=== PATIENT | female | born 1970 | race African-American/Black ===

== ENCOUNTER 2016-03-24 17:34 | Emergency (ER) | payer OTHER ==
[2016-03-24 19:00] VITALS: BP 119/79
--- NOTE | 2016-03-24 19:45 | UC ---
Throat Pain/Nasal Rolando HPI - HPI Summary HPI Summary: complaint of nasal congestion and cough that started approx 7 days ago coughing so hard she vomited 1 x yesterday her left ear has been painful denies fever and chills denies muscle aches taking [place], using albuterol inhaler without reliel and tessalon perles - History of Current Complaint Chief Complaint: UCEar Stated Complaint: EAR PAIN,DRAINAGE Time Seen by Provider: 03/24/16 19:41 Hx Last Menstrual Period: 03/23/16 - Allergies/Home Medications Allergies/Adverse Reactions: Allergies Allergy/AdvReac Type Severity Reaction Status Date / Time Adhesive Tape [Plastic Tape] Allergy Rash Verified 03/24/16 19:00 Penicillins [PCN] Allergy Swelling Verified 03/24/16 19:00 Of Face,Lips,& Throat Home Medications: Home Medications Benzonatate CAP* [Tessalon CAP*] 200 mg PO PRN 03/24/16 [History] PMH/Surg Hx/FS Hx/Imm Hx Endocrine History Of: Denies: Diabetes, Thyroid Disease Cardiovascular History Of: Denies: Cardiac Disorders, Hypertension, Pacemaker/ICD, Myocardial Infarction , Congestive Heart Failure, Atrial Fibrillation, Deep Vein Thrombosis, Bleeding Disorders Respiratory History Of: Reports: Asthma - She uses an inhaler every day., Bronchitis Denies: COPD, Pneumonia, Pulmonary Embolism GI/ History Of: Reports: Gastroesophageal Reflux - She states that she takes Prilosec and Carafate. Denies: Ulcer, Gastrointestinal Bleed, Gall Bladder Disease, Kidney Stones, Diverticulitis, Renal Disease, Urosepsis Neurological History Of: Denies: TIA, CVA, Dementia, Seizures, Migraine Psychological History Of: Denies: Anxiety, Depression, Bipolar Disorder, Schizophrenia, Post Traumatic Stress Disorder Cancer History Of: Denies: Lung Cancer, Colorectal Cancer, Breast Cancer, Prostate Cancer, Cervical Cancer Other History Of: Negative For: HIV, Hepatitis B, Hepatitis C, Anticoagulant Therapy - Surgical History Surgical History: Yes Surgery Procedure, Year, and Place: KNUCKLES REMOVED FROM BILAT 5TH TOES - Family History Known Family History: Positive: Hypertension, Diabetes - both parents and all her siblings, Respiratory Disease - Social History Alcohol Use: Occasionally Alcohol Amount: 2X/MONTH Substance Use Type: None Smoking Status (MU): Current Every Day Smoker Type: Cigarettes Amount Used/How Often: 1/3 PPD Length of Time of Smoking/Using Tobacco: 18+ years Have You Smoked in the Last Year: Yes - Immunization History Most Recent Tetanus Shot: 05/20/12 Review of Systems Constitutional: Negative Skin: Negative Eyes: Negative ENT: Ear Ache, Nasal Discharge Respiratory: Cough Cardiovascular: Negative Gastrointestinal: Negative Genitourinary: Negative Motor: Negative Neurovascular: Negative Musculoskeletal: Negative Neurological: Negative Psychological: Negative All Other Systems Reviewed And Are Negative: Yes Physical Exam Triage Information Reviewed: Yes Appearance: No Pain Distress, Well-Nourished Vital Signs: Initial Vital Signs Temp 98 F 03/24/16 18:57 Pulse 95 03/24/16 18:57 Resp 16 03/24/16 18:57 BP 119/79 03/24/16 18:57 Pulse Ox 98 03/24/16 18:57 Vital Signs Reviewed: Yes Eyes: Positive: Conjunctiva Clear ENT: Positive: Pharyngeal erythema, Nasal congestion, Nasal drainage, TM bulging , TM red, Tonsillar swelling Neck: Positive: No Lymphadenopathy Respiratory: Positive: No respiratory distress, No accessory muscle use, Rhonchi - BLL, Wheezing Cardiovascular: Positive: RRR, No Murmur, Pulses Normal Abdomen Description: Positive: Nontender, Soft Bowel Sounds: Positive: Present Musculoskeletal: Positive: No Edema Psychological Exam: Normal Skin Exam: Normal Throat Pain/Nasal Course/Dx - Course Course Of Treatment: exam completed. recent use of zpack will rx clarithromycin - Differential Dx/Diagnosis Differential Diagnosis/HQI/PQRI: Otitis Media, Pharyngitis, URI Provider Diagnoses: asthma exacerbation, otitis media Discharge - Discharge Plan Condition: Stable Disposition: HOME Prescriptions: Albuterol HFA INHALER* [Ventolin HFA Inhaler*] 2 puff INH Q4H PRN #1 mdi PRN Reason: Wheezing Clarithromycin TAB* [Biaxin TAB*] 500 mg PO BID #20 tab guaiFENesin ER TAB [Mucinex*] 600 mg PO BID #20 tab.er predniSONE TAB* [Deltasone TAB*] 50 mg PO DAILY #5 tab Patient Education Materials: Otitis Media (ED), Asthma (ED) Referrals: Vicente Mcnair MD [Primary Care Provider] - Additional Instructions: Please take antibiotic and prednisone as directed Use your albuterol inhaler every 4-6 hours when needed for wheezing, shortness of breath or uncontrolled coughing. Increase fluids and rest Take acetaminophen or ibuprofen for fever or pain Please review your discharge instructions. If your symptoms do not improve please call your primary care provider or return to urgent care.
== END 2016-03-24 20:05 | disposition home or self-care (01) ==
LOC: UCEAST 17:34
DX: J45.901 Unspecified asthma with (acute) exacerbation (principal); H66.92 Otitis media, unspecified, left ear; Z88.0 Allergy status to penicillin; F17.210 Nicotine dependence, cigarettes, uncomplicated
CPT/HCPCS: 99212; G0463

== ENCOUNTER 2016-04-09 07:21 | Emergency (ER) | payer OTHER ==
[2016-04-09 07:38] VITALS: BP 99/59
[2016-04-09] MEDS ORDERED: Albuterol 2.5 MG/3 ML NEB.SOL* (0.083%) INH ONE (08:13)
[2016-04-09] MEDS ORDERED: Ipratropium 0.5MG/2.5ML NEB* 0.5 MG/2.5 ML NEB.SOLN INH ONE (08:13)
--- NOTE | 2016-04-09 08:34 | RAD ---
INDICATION: Cough and fever COMPARISON: April 28, 2014; chest x-ray November 25, 2011 TECHNIQUE: PA and lateral dual-energy views were obtained. FINDINGS: Bones/Soft Tissues: There are no acute bony findings. Cardiomediastinal: The cardiomediastinal silhouette is normal. Lungs: There are no infiltrates. Pleura: There are no pleural effusions. Other: None IMPRESSION: NO ACTIVE DISEASE.
--- NOTE | 2016-04-09 10:49 | UC ---
Tyler Hancock Claudia, scribed for Shannen Kovacs DO on 04/09/16 at 0813 . General HPI - HPI Summary HPI Summary: 46 year old female presents to the ED with subjective fever, chills, body aches , intermittent vomiting, LOCO, cough. Pt denies any sinus pressure, ear ache or sore throat. Pt notes that she has had gradual onset of Sx starting Sunday. She denies any urinary Sx including dysuria,, diarrhea, and rashes. Pt notes that everyone at her work is sick, some diagnosed with influenza. She notes progressive worsening of her Sx over the past few days. - History of Current Complaint Chief Complaint: UCGeneralIllness Stated Complaint: URI Time Seen by Provider: 04/09/16 07:32 Hx Obtained From: Patient Onset/Duration: Gradual Onset, Lasting Days, Still Present Timing: Constant Onset Severity: Moderate Current Severity: Moderate Associated Signs & Symptoms: Positive: Cough, Chest Pain - pleuritic, Fever, Headache, Nausea, Vomiting, Wheezing. Negative: Dizziness, Diarrhea, Dysuria - Allergy/Home Medications Allergies/Adverse Reactions: Allergies Allergy/AdvReac Type Severity Reaction Status Date / Time Adhesive Tape [Plastic Tape] Allergy Rash Verified 03/24/16 19:00 Coconut Flavor Allergy Swelling Verified 04/09/16 07:27 Of Face,Lips,& Throat Penicillins [PCN] Allergy Swelling Verified 03/24/16 19:00 Of Face,Lips,& Throat Home Medications: Home Medications Dextromethorphan-Phenylephrine [Vicks Dayquil Cold & Flu 10-5-325 mg] 2 tab PO PRN 04/09/16 [History] PMH/Surg Hx/FS Hx/Imm Hx Previously Healthy: Yes Endocrine History Of: Denies: Diabetes, Thyroid Disease Cardiovascular History Of: Denies: Cardiac Disorders, Hypertension, Pacemaker/ICD, Myocardial Infarction , Congestive Heart Failure, Atrial Fibrillation, Deep Vein Thrombosis, Bleeding Disorders Respiratory History Of: Reports: Asthma - She uses an inhaler every day., Bronchitis Denies: COPD, Pneumonia, Pulmonary Embolism GI/ History Of: Reports: Gastroesophageal Reflux - She states that she takes Prilosec and Carafate. Denies: Ulcer, Gastrointestinal Bleed, Gall Bladder Disease, Kidney Stones, Diverticulitis, Renal Disease, Urosepsis Neurological History Of: Denies: TIA, CVA, Dementia, Seizures, Migraine Psychological History Of: Denies: Anxiety, Depression, Bipolar Disorder, Schizophrenia, Post Traumatic Stress Disorder Cancer History Of: Denies: Lung Cancer, Colorectal Cancer, Breast Cancer, Prostate Cancer, Cervical Cancer Other History Of: Negative For: HIV, Hepatitis B, Hepatitis C, Anticoagulant Therapy - Surgical History Surgical History: Yes Surgery Procedure, Year, and Place: KNUCKLES REMOVED FROM BILAT 5TH TOES - Family History Known Family History: Positive: Hypertension, Diabetes - both parents and all her siblings, Respiratory Disease - Social History Occupation: Employed Full-time Lives: With Family Alcohol Use: Occasionally Alcohol Amount: 2X/MONTH Substance Use Type: None Smoking Status (MU): Current Every Day Smoker Type: Cigarettes Amount Used/How Often: 5 cig/day Length of Time of Smoking/Using Tobacco: 18+ years Have You Smoked in the Last Year: Yes Cessation Counseling: Patient Advised to Stop - Immunization History Most Recent Influenza Vaccination: Not UTD Most Recent Tetanus Shot: 05/20/12 Review of Systems Constitutional: Other - FEVER, CHILLS Skin: Negative Eyes: Negative ENT: Negative Respiratory: Cough Cardiovascular: Negative Gastrointestinal: Negative Genitourinary: Negative - NO URINARY Sx Motor: Negative Neurovascular: Negative Musculoskeletal: Negative Neurological: Negative Psychological: Negative All Other Systems Reviewed And Are Negative: Yes Physical Exam Triage Information Reviewed: Yes Appearance: Well-Appearing, No Pain Distress, Well-Nourished Vital Signs: Initial Vital Signs Temp 98.4 F 04/09/16 07:32 Pulse 103 04/09/16 07:32 Resp 20 04/09/16 07:32 BP 99/59 04/09/16 07:32 Pulse Ox 97 04/09/16 07:32 Vital Signs Reviewed: Yes Eye Exam: Normal Eyes: Positive: Conjunctiva Clear. Negative: Discharge ENT Exam: Normal ENT: Positive: Hearing grossly normal, TMs normal. Negative: Tonsillar swelling , Tonsillar exudate, Trismus, Muffled/hoarse voice Neck exam: Normal Neck: Positive: Supple Respiratory: Positive: No respiratory distress, No accessory muscle use, Wheezing - diffuse wheezing in all noe Cardiovascular: Positive: RRR, No Murmur Abdomen Description: Positive: Nontender, Soft. Negative: CVA Tenderness (R), CVA Tenderness (L), Distended, Guarding Bowel Sounds: Positive: Present Musculoskeletal Exam: Normal Neurological: Positive: Alert, Muscle Tone Normal Psychological Exam: Normal Psychological: Positive: Age Appropriate Behavior Skin Exam: Normal, Other - warm, dry nml color Diagnostics - Radiology CXR Xray Interpretation: No Acute Changes - NO ACTIVE DISEASE Radiology Interpretation Completed By: Radiologist Re-Evaluation - Re-Evaluation 1 Re-Evaluation Time: 09:24 Change: Improved - pt is somewhat improved after an albulterol treatment 2 Re-Evaluation Time: 09:54 Comment: Results of a positive inflenza rapid test are discussed with pt. Course/Dx - Differential Dx - Multi-Symptom Differential Diagnoses: Other - pna, bronchitis, flu, uri Provider Diagnoses: influenza, bronchitis Discharge - Discharge Plan Condition: Stable Disposition: HOME Prescriptions: Albuterol 2.5MG/3ML (0.083%)* [Ventolin 2.5 MG/3 ML NEB.SEYMOUR*] 2.5 mg INH Q4H PRN #1 box PRN Reason: Sob/Wheezing Benzonatate CAP* [Tessalon CAP*] 100 mg PO TID PRN #30 cap PRN Reason: Cough Oseltamivir Phosphate [Tamiflu] 75 mg PO BID #10 cap guaiFENesin ER TAB [Mucinex*] 600 mg PO BID PRN #1 box PRN Reason: Cough guaiFENesin/CODIEN 100MG-10MG* [Robitussin AC 100Mg-10Mg*] 5 - 10 ml PO BEDTIME PRN #100 udc MDD 10ml PRN Reason: Cough predniSONE TAB* [Deltasone TAB*] 40 mg PO DAILY #10 tab Patient Education Materials: Influenza (ED), Acute Bronchitis (ED), Oseltamivir (By mouth) Referrals: Vicente Mcnair MD [Primary Care Provider] - 3 Days (Follow up in 5 days if not improving. Follow up sooner is symptoms worsen.) Additional Instructions: CORTICOSTEROID MEDICATION: You have been given a medicine of the cortisone class. This medication is used to control inflammation or allergy. It is usually only given for a short period of time, until the acute process subsides. There are usually no side effects from short-term use of cortisone-like medications. Some persons feel an increased sense of well-being and are not sleepy at bedtime. Long-term use of cortisone medications is best avoided, unless required for a severe condition. If your condition does not remit, or relapses after the course of corticosteroid medication, you should consult your physician. Contact the physician if you develop lightheadedness, black or tarry stools , swelling of the legs, or significant rapid change in weight. INHALED BRONCHODILATORS: You have received a prescription for an inhaled bronchodilator -- a medication which stimulates the airways in the lung to dilate. This improves the flow of air in asthma, bronchitis, and emphysema. These medicines have some similarity to adrenaline, and can cause similar side effects: shakiness, racing heart, and a sense of nervousness. These side effects decrease with time. Contact your doctor if these side effects are severe. Do not over-use the medicine. Too-frequent use of the inhaler may make it ineffective. Call your doctor if the inhaler is not controlling your symptoms at the prescribed doses. COUGH-SUPPRESSANT & EXPECTORANT MEDICATION: You are to use a cough medication as needed for relief of symptoms. This medicine is a combination of an expectorant (to make the mucous thinner and more easily "coughed up") and a cough suppressant (to reduce the frequency of coughing). The cough-suppressant medicine is related to narcotics. You may experience mild nausea and sleepiness. Some patients who are very sensitive to narcotics may have stomach pain from this medicine. Taking the medicine with food reduces these side effects. Do not drive or work with machinery until you know how this medicine affects you. The expectorant should have no side effects. Iodine-containing expectorants (such as organidin) should not be taken by persons with active thyroid disease unless approved by your doctor. Call the doctor if you develop shortness of breath, hives, rash, itching, lightheadedness, or severe nausea and vomiting. EXPECTORANT MEDICATION: An expectorant medicine has been prescribed. This type of drug makes mucous thinner, helping the sinuses, nose, and bronchial tubes to remain free of pus and mucous. Expectorants make a cough less severe and more comfortable, and help infected sinuses drain. In general, antihistamines defeat the purpose of the expectorant by making mucous thicker. They should be avoided unless specifically recommended by your physician. TESSALON PERLES: You have received a prescription for Tessalon Perles (benzonatate). This is a non-narcotic medicine for relief of cough. It usually works in about 15- 20 minutes and lasts around four hours. Tessalon Perles should be swallowed. They should not be chewed or dissolved in the mouth (this can produce temporary numbing of the mouth and choking can occur). If you develop any adverse effects such as wheezing, shortness of breath, hives, rash, itching, or lightheadedness, please return at once. The documentation as recorded by the Tyler juarez Claudia accurately reflects the service I personally performed and the decisions made by me, Shannen Kovacs DO.
== END 2016-04-09 10:09 | disposition home or self-care (01) ==
LOC: UCEAST 07:21
DX: J11.1 Influenza due to unidentified influenza virus with other respiratory manifestations (principal); J40 Bronchitis, not specified as acute or chronic; F17.210 Nicotine dependence, cigarettes, uncomplicated; Z88.0 Allergy status to penicillin
CPT/HCPCS: 71020; 87502; 99212; G0463; J7644

== ENCOUNTER 2016-09-24 00:01 | Emergency (ER) | payer OTHER ==
[2016-09-24] MEDS ORDERED: Aspirin Low Dose CHEW TAB* 81 MG PO ONE (00:11)
[2016-09-24 00:31] LABS: Hematocrit 35 % (35-47); Hemoglobin 11.3 g/dl (12.0-16.0); Mean Corpuscular HGB Conc 32 g/dl (31-36); Mean Corpuscular Hemoglobin 26 pg (27-31); Mean Corpuscular Volume 81 fL (80-97); Mean Platelet Volume 10 um3 (7.4-10.4); Red Cell Distribution Width 17 % (10.5-15); White Blood Count 5.2 10^3/ul (3.5-10.8)
[2016-09-24 00:39] LABS: Albumin 3.7 g/dL (3.2-5.2); Calcium 9.1 mg/dL (8.6-10.3); EGFR Non-African American 106.5 (>60); Potassium 3.4 mmol/L (3.5-5.0); Total Bilirubin 0.2 mg/dL (0.2-1.0); Total Protein 6.7 g/dL (6.4-8.9)
[2016-09-24 00:41] LABS: Troponin I 0.01 ng/mL (<0.04)
--- NOTE | 2016-09-24 02:15 | ED ---
I, Forrest,Xiomara, scribed for Nelson Carlos MD on 09/24/16 at 0018 . HPI Chest Pain - HPI Summary HPI Summary: This 46 y/o female presents to ED for acute chest pain since 1999 PM tonight. Pt was at rest watching TV with her kids at time of onset. She initially dismissed pain as musculoskeletal, but became concerned with persistent pain in spite of pain medication. Pain has been sharp and constant since the onset, and is not alleviated by IBP taken PRODUCTION LEAD. Deep breaths make the pain worse. She denies any prior episode of similar chest pain. PMHx includes GERD and asthma. Allergies involving PCN is reviewed and confirmed with pt. - History of Current Complaint Chief Complaint: EDChestPainROMI Hx Obtained From: Patient, Medical Records Hx Last Menstrual Period: 03/26/16 Onset/Duration: Started Hours Ago, Atraumatic, Still Present Timing: Constant Pain Intensity: 5 Pain Scale Used: 0-10 Numeric Chest Pain Location: Diffuse Chest Pain Radiates: No Character: Sharp/Stabbing Aggravating Factor(s): Nothing Alleviating Factor(s): Nothing Associated Signs and Symptoms: Positive: Chest Pain. Negative: Shortness of Breath, Fever - Allergy/Home Medications Allergies/Adverse Reactions: Allergies Allergy/AdvReac Type Severity Reaction Status Date / Time Adhesive Tape [Plastic Tape] Allergy Rash Verified 09/24/16 00:06 Coconut Flavor Allergy Swelling Verified 09/24/16 00:06 Of Face,Lips,& Throat Penicillins [PCN] Allergy Swelling Verified 09/24/16 00:06 Of Face,Lips,& Throat PMH/Surg Hx/FS Hx/Imm Hx Endocrine/Hematology History: Denies: Hx Anticoagulant Therapy, Hx Blood Disorders, Hx Blood Transfusions, Hx Bone Marrow Disease, Hx Diabetes, Hx Systemic Lupus Erythematosus, Hx Thyroid Disease, Hx Anemia, Hx Unexplained Bleeding Cardiovascular History: Denies: Hx Congestive Heart Failure, Hx Deep Vein Thrombosis, Hx Hypertension , Hx Myocardial Infarction, Hx Pacemaker/ICD Respiratory History: Reports: Hx Asthma - She uses an inhaler every day., Hx Chronic Bronchitis Denies: Hx Chronic Obstructive Pulmonary Disease (COPD), Hx Cystic Fibrosis, Hx Lung Cancer, Hx Pleural Effusion, Hx Pneumonia, Hx Pulmonary Edema, Hx Pulmonary Embolism, Hx Seasonal Allergies GI History: Reports: Hx Gastroesophageal Reflux Disease - OCC Denies: Hx Gall Bladder Disease, Hx Gastrointestinal Bleed, Hx Ulcer, Hx Urosepsis History: Denies: Hx Kidney Stones, Hx Renal Disease Musculoskeletal History: Reports: Hx Rheumatoid Arthritis Sensory History: Reports: Hx Contacts or Glasses - GLASSES Opthamlomology History: Reports: Hx Contacts or Glasses - GLASSES Neurological History: Denies: Hx Dementia, Hx Migraine, Hx Seizures, Hx Transient Ischemic Attacks (TIA) Psychiatric History: 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 Denies: Hx Anxiety, Hx Depression, Hx Schizophrenia, Hx Bipolar Disorder - Surgical History Surgery Procedure, Year, and Place: KNUCKLES REMOVED FROM BILAT 5TH TOES Infectious Disease History: Yes Infectious Disease History: Reports: Hx of Known/Suspected MRSA - axilla abcess 2008 Denies: Hx Clostridium Difficile, Hx Hepatitis, Hx Human Immunodeficiency Virus (HIV), Hx Shingles, Hx Tuberculosis, Hx Known/Suspected VRE, Hx Known/ Suspected VRSA, History Other Infectious Disease, Traveled Outside the [place] in Last 30 Days - Family History Known Family History: Positive: Hypertension, Diabetes - both parents and all her siblings, Respiratory Disease - Social History Alcohol Use: Occasionally Alcohol Amount: 2X/MONTH Substance Use Type: Reports: None Smoking Status (MU): Current Every Day Smoker Type: Cigarettes Amount Used/How Often: 5 cig/day Length of Time of Smoking/Using Tobacco: 18+ years Have You Smoked in the Last Year: Yes Review of Systems Negative: Fever Positive: Chest Pain Negative: Shortness Of Breath All Other Systems Reviewed And Are Negative: Yes Physical Exam Triage Information Reviewed: Yes Vital Signs On Initial Exam: Initial Vitals Temp Pulse Resp BP Pulse Ox 97.6 F 89 16 109/45 99 09/24/16 00:08 09/24/16 00:08 09/24/16 00:08 09/24/16 00:08 09/24/16 00:08 Vital Signs Reviewed: Yes Appearance: Positive: Well-Appearing, No Pain Distress Skin: Positive: Warm Head/Face: Positive: Normal Head/Face Inspection Eyes: Positive: ARLETH ENT: Positive: Hearing grossly normal Neck: Positive: Supple, Nontender Respiratory/Lung Sounds: Positive: Clear to Auscultation, Breath Sounds Present Cardiovascular: Positive: RRR Abdomen Description: Positive: Nontender, Soft Bowel Sounds: Positive: Present Musculoskeletal: Positive: Strength/ROM Intact Neurological: Positive: Alert, Oriented to Person Place, Time, Normal Gait Psychiatric: Positive: Affect/Mood Appropriate Diagnostics - Vital Signs Vital Signs Temp Pulse Resp BP Pulse Ox 09/24/16 00:08 97.6 F 89 16 109/45 99 - Laboratory Result Diagrams: 09/24/16 00:08 09/24/16 00:08 Lab Statement: Any lab studies that have been ordered have been reviewed, and results considered in the medical decision making process. - Radiology CXR Radiology Interpretation Completed By: ED Physician - EKG 0005 Cardiac Rate: NL - 91 bpm EKG Rhythm: Sinus Rhythm ST Segment: Normal Re-Evaluation - Re-Evaluation First Eval Change: Improved - PT REMAINS PAIN FREE Chest Pain Course/Dx - Course Assessment/Plan: This 46 y/o female presents to ED for acute onset of chest pain since 2200 PM tonight. CXR and EKG is noted nml. Repeat trop at 0315 PM is unchaged from her initial trop at 0008 AM. Pt is stable throughout ED course. Pt is stable for discharge. - Diagnoses Provider Diagnoses: Chest pain Discharge - Discharge Plan Condition: Stable Disposition: HOME Patient Education Materials: Chest Pain (ED) Referrals: Vicente Mcnair MD [Primary Care Provider] - 2 Days The documentation as recorded by the Forrest juarez Soohyun accurately reflects the service I personally performed and the decisions made by , Nelson Carlos MD.
[2016-09-24 04:15] VITALS: BP 80/51
--- NOTE | 2016-09-24 09:11 | RAD ---
Indication: Chest pain. Single frontal view of the chest performed at 0024 hours was reviewed. Comparison is made with previous exam dated April 09, 2016. No mediastinal shift is noted. Heart is of normal size and configuration. Lung noe appear clear. IMPRESSION: NO ACTIVE CARDIOPULMONARY DISEASE IS NOTED.
== END 2016-09-24 04:15 | disposition home or self-care (01) ==
LOC: ED 00:01
DX: R07.9 Chest pain, unspecified (principal); I10 Essential (primary) hypertension; F17.210 Nicotine dependence, cigarettes, uncomplicated
CPT/HCPCS: 36415; 71010; 80053; 83605; 84484; 85025; 93005; 99283; A9270-GY

== ENCOUNTER 2016-10-17 19:20 | Emergency (ER) | payer OTHER ==
[2016-10-17 19:35] VITALS: BP 90/68
[2016-10-17] MEDS ORDERED: predniSONE TAB* 20 MG PO ONE (19:51)
[2016-10-17] MEDS ORDERED: Doxycycline (NF) 100 MG TAB PO ONE (19:51)
[2016-10-17] MEDS ORDERED: Albuterol 2.5 MG/3 ML NEB.SOL* (0.083%) INH ONE (19:52)
--- NOTE | 2016-10-17 20:07 | UC ---
Respiratory Complaint HPI - HPI Summary HPI Summary: Patient presents to the clinic with a past medical history of asthma. She presents with eight day onset progressively worsening cough, think white sputum , generalized fatigue and malaise And just cannot sleep due to the terrible coughing. She states she has not slept at all. She denies chest pain, abdominal pain, nausea, vomiting or diarrhea. She has been using her son albuterol nebulizer with some temporary relief. - History of Current Complaint Chief Complaint: UCRespiratory Stated Complaint: COUGH Time Seen by Provider: 10/17/16 19:44 Hx Obtained From: Patient Hx Last Menstrual Period: 10/06/16 ?: No Onset/Duration: Gradual Onset, Lasting Days Timing: Intermittent Episodes Severity Initially: Moderate Severity Currently: Moderate Character: Cough: Productive Aggravating Factors: Exertion, Deep Breaths, Recumbent Position Alleviating Factors: Bronchodilator, Upright Position, Spontaneous Resolution Associated Signs And Symptoms: Positive: Wheezing, URI, Nasal Congestion - Risk Factors Pulmonary Embolism Risk Factors: Negative Cardiac Risk Factors: Negative Pseudomonas Risk Factors: Negative Tuberculosis Risk Factors: Negative - Allergies/Home Medications Allergies/Adverse Reactions: Allergies Allergy/AdvReac Type Severity Reaction Status Date / Time Adhesive Tape [Plastic Tape] Allergy Rash Verified 10/17/16 19:35 Coconut Flavor Allergy Swelling Verified 10/17/16 19:35 Of Face,Lips,& Throat Penicillins [PCN] Allergy Swelling Verified 10/17/16 19:35 Of Face,Lips,& Throat Home Medications: Home Medications Mometasone/Formoter 100/5 MDI* [Dulera 100/5 MDI*] 2 puff INH BID 10/17/16 [ History Confirmed 10/17/16] PMH/Surg Hx/FS Hx/Imm Hx Previously Healthy: Yes Respiratory History: Asthma Other History Of: Negative For: HIV, Hepatitis B, Hepatitis C, Anticoagulant Therapy - Surgical History Surgical History: Yes Surgery Procedure, Year, and Place: KNUCKLES REMOVED FROM BILAT 5TH TOES - Family History Known Family History: Positive: Hypertension, Diabetes - both parents and all her siblings, Respiratory Disease - Social History Occupation: Employed Full-time Lives: Alone Alcohol Use: Occasionally Alcohol Amount: 2X/MONTH Substance Use Type: None Smoking Status (MU): Current Every Day Smoker Type: Cigarettes Amount Used/How Often: 5 cig/day Length of Time of Smoking/Using Tobacco: 18+ years Have You Smoked in the Last Year: Yes - Immunization History Most Recent Influenza Vaccination: Not UTD Most Recent Tetanus Shot: 05/20/12 Review of Systems Constitutional: Chills, Fatigue Skin: Negative Eyes: Negative Cardiovascular: Negative Gastrointestinal: Negative Genitourinary: Negative Motor: Negative Neurovascular: Negative Musculoskeletal: Negative Neurological: Negative All Other Systems Reviewed And Are Negative: Yes Physical Exam Triage Information Reviewed: Yes Appearance: Ill-Appearing Vital Signs: Initial Vital Signs Temp 98.2 F 10/17/16 19:31 Pulse 116 10/17/16 19:31 Resp 20 10/17/16 19:31 BP 90/68 10/17/16 19:31 Pulse Ox 99 10/17/16 19:31 Vital Signs Reviewed: Yes Eye Exam: Normal ENT: Positive: Pharyngeal erythema, TM red Neck exam: Normal Respiratory: Positive: Crackles, Rhonchi, Wheezing, Expiration, Inspiration Cardiovascular Exam: Normal Cardiovascular: Positive: RRR Abdominal Exam: Normal Skin Exam: Normal UC Diagnostic Evaluation - Laboratory O2 Sat by Pulse Oximetry: 99 Respiratory Course/Dx - Course Course Of Treatment: Patient presents with clincial findings consistent with exacerbation of asthma secondary to pheumonia. She was given a loading does of doxycycline 100mg, prednisone 40mg, albuertol neb treatment in the clinic. She was also given a 10 day course of doxycycline, 5 day course of prednison, and albuterol for the nebulizer at home, and tussin/codeine for cough suppressant. She was instructed to go to the er in 2 days if her symtpoms do not improve. She verbalized understanding of the discharge instructions and in agreement with the discharge plan. - Differential Dx/Diagnosis Differential Diagnosis/HQI/PQRI: Asthma, Other - pneumonia Provider Diagnoses: asthma. pneumonia Discharge - Discharge Plan Condition: Stable Disposition: HOME Prescriptions: Albuterol 2.5MG/3ML (0.083%)* [Ventolin 2.5 MG/3 ML NEB.SEYMOUR*] 2.5 mg INH Q6H #1 box DOXYcycline CAP(*) [DOXYcycline 100MG CAP(*)] 100 mg PO BID #20 cap Guaifenesin-Codeine [Codeine/Guaifenesin 100-10 mg/5Ml] 5 ml PO QID PRN #120 ml MDD 20ml PRN Reason: cough suppressant predniSONE TAB* [Deltasone TAB*] 40 mg PO DAILY #5 tab Patient Education Materials: Bacterial Pneumonia (ED) Referrals: Vicente Mcnair MD [Primary Care Provider] - Additional Instructions: If your symptoms do not improve within 2 days you need to be re-evaluated by your PCP, return to the walkin-in, or go to ther ER.
[2016-10-17] MEDS ORDERED: DOXYcycline CAP(*) 100 MG PO ONE (20:22)
== END 2016-10-17 20:45 | disposition home or self-care (01) ==
LOC: UCEAST 19:20
DX: J45.909 Unspecified asthma, uncomplicated (principal); J18.9 Pneumonia, unspecified organism; Z88.0 Allergy status to penicillin; Z91.048 Other nonmedicinal substance allergy status; F17.210 Nicotine dependence, cigarettes, uncomplicated
CPT/HCPCS: 99213; A9270-GY; G0463; J7512

== ENCOUNTER 2017-06-02 17:31 | Emergency (ER) | payer OTHER ==
[2017-06-02 17:47] VITALS: BP 110/73
[2017-06-02] MEDS ORDERED: Tetan/Diph/Pertus SYR(Tdap)* 0.5 ML SYR(BOOSTRIX) use SYR IM ONE (18:24)
--- NOTE | 2017-06-02 18:24 | UC ---
Laceration HPI - HPI Summary HPI Summary: 47 y/o female presents to the urgent care c/o a cut on the palmar side of her Left hand this morning around 0745 am while trying to cut a bagel. Pt is unsure of last Tetanus shot. Pain is sharp 7/10 radiating to left forearm. Bleeding stopped w/ pressure. Pt denies numbness and tingling sensation over hand and can move hand w/o any difficulty. Pt denies SOB, chest pain, abdominal pain, N/V /D. She took Ibuprofen PO at 1630Pm to alleviate symptoms. Pt has PMHX of MRSA - History Of Current Complaint Chief Complaint: UCLaceration Stated Complaint: HAND LAC Time Seen by Provider: 06/02/17 18:24 Hx Obtained From: Patient Hx Last Menstrual Period: 10/06/16 Laceration Location: Hand - left palm hand Mechanism Of Injury: Sharp Trauma Onset/Duration: Lasting Hours - 8hrs Pain Intensity: 7 Pain Scale Used: 0-10 Numeric Aggravating Factors: Movement Related History: Dominant Hand Right - Allergies/Home Medications Allergies/Adverse Reactions: Allergies Allergy/AdvReac Type Severity Reaction Status Date / Time Adhesive Tape [Plastic Tape] Allergy Rash Verified 06/02/17 17:48 coconut Allergy Swelling Verified 06/02/17 17:48 Of Face,Lips,& Throat Penicillins Allergy Swelling Verified 06/02/17 17:48 Of Face,Lips,& Throat Home Medications: Home Medications Biotin 1,000 mcg PO 06/02/17 [History] PMH/Surg Hx/FS Hx/Imm Hx Previously Healthy: Yes Respiratory History: Asthma Other History Of: Negative For: HIV, Hepatitis B, Hepatitis C, Anticoagulant Therapy - Surgical History Surgical History: Yes Surgery Procedure, Year, and Place: KNUCKLES REMOVED FROM BILAT 5TH TOES - Family History Known Family History: Positive: Hypertension, Diabetes - both parents and all her siblings, Respiratory Disease - Social History Occupation: Employed Full-time Lives: With Family Alcohol Use: Occasionally Alcohol Amount: 2X/MONTH Substance Use Type: None Smoking Status (MU): Light Every Day Tobacco Smoker Type: Cigarettes Amount Used/How Often: 5 cig/day Length of Time of Smoking/Using Tobacco: 18+ years Have You Smoked in the Last Year: Yes - Immunization History Most Recent Influenza Vaccination: Not UTD Most Recent Tetanus Shot: 05/20/12 Review of Systems Constitutional: Negative Skin: Other - left hand laceration w/ a knife Eyes: Negative ENT: Negative Respiratory: Negative Cardiovascular: Negative Gastrointestinal: Negative Genitourinary: Negative Motor: Negative Neurovascular: Negative Musculoskeletal: Other: - left hand pain s/o laceration Neurological: Negative Psychological: Negative Is Patient Immunocompromised?: No All Other Systems Reviewed And Are Negative: Yes Physical Exam - Summary Physical Exam Summary: Vital Signs Reviewed: Yes General: well developed, well nourished female sitting in the examining table w/ o any apparent distress Eye Exam: Normal Eyes: Positive: Conjunctiva Clear - PERRLA, EOMI, fundi grossly normal ENT: Positive: Normal ENT inspection, Hearing grossly normal, Pharynx normal, TMs normal Neck: Positive: Supple, Nontender, No Lymphadenopathy Respiratory: Positive: Chest non-tender, Lungs clear, Normal breath sounds, No respiratory distress Cardiovascular: Positive: RRR, No Murmur, Pulses Normal, Brisk Capillary Refill Abdomen Description: Positive: Nontender, No Organomegaly, Soft. Negative: CVA Tenderness (R), CVA Tenderness (L) Bowel Sounds: Positive: Present Musculoskeletal: Positive: Strength Intact, ROM Intact, No Edema Neurological: Positive: Alert, Muscle Tone Normal Psychological Exam: Normal Skin: Positive:Thenar eminence of left hand w/ a discrete linear superficial laceration about 0.3cm in size, no bleeding, no foreign body observed. moderate tenderness to palpation, FROM of LF arm, sensation intact, capillary refill brisk, and pulses WNL. Triage Information Reviewed: Yes Vital Signs: Initial Vital Signs Temp 98.0 F 06/02/17 17:43 Pulse 91 06/02/17 17:43 Resp 18 06/02/17 17:43 BP 110/73 06/02/17 17:43 Pulse Ox 100 06/02/17 17:43 Laceration Repair - Laceration Repair 1 Description: Linear - at the palmar side of the left hand Laceration Size After Repair: Length (cm) - 0.3cm Modified For Repair: No Cleansing Completed Via Routine Prep: Yes Irrigation With Pressure Irrigation Device: Yes Closure Material: Skin Adhesive, SteriStrips Suture Of: Skin Suture Type: Nylon Laceration Course/Dx - Course/Dx Course Of Treatment: 47 y/o female presents to the urgent care c/o a cut on the palmar side of her Left hand this morning around 0745 am while trying to cut a bagel. Pt is unsure of last Tetanus shot. Pain is sharp 7/10 radiating to left forearm. Bleeding stopped w/ pressure. Pt denies numbness and tingling sensation over hand and can move hand w/o any difficulty. Pt denies SOB, chest pain, abdominal pain, N/V/D. She took Ibuprofen PO at 1630Pm to alleviate symptoms. Pt has PMHX of MRSA. Hx obtained. Pt w/ Thenar eminence of left hand w / a discrete linear superficial laceration about 0.3cm in size, no bleeding, no foreign body observed. moderate tenderness to palpation, FROM of LF arm on examination. There is not need for sutures.LACERATION PROCEDURE NOTE: Copious irrigation was done with saline and the wound explored. There was no FB or deep structure injury noted. wound cleaned w/ Iodine swabs. Laceration closed w / skin adhesive and 2 steri-strips. Wound dressed w/ sterile gauze.The Pt tolerated the procedure well without adverse effects. Neurovascular intact and FROM of LF hand. Tdap ordered and applied by nurse. Pt w/ Hx of MRSA, PT Rx Bactrim PO and Ibuprofen PO or pain. Pt advised if any signs of infection develop despite ABX to immediately return to the urgent care of PCP for further management and treatment. Pt understood and agreed and left the clinic ambulating A&Ox3. - Differential Dx - Laceration/Wound Differental Diagnoses: Abrasion, Laceration, Puncture Wound, Tendon Laceration Provider Diagnoses: 1- Left hand laceration repair Discharge - Sign-Out/Discharge Documenting (check all that apply): Discharge - Discharge Plan Condition: Stable Disposition: HOME Prescriptions: Ibuprofen TAB* [Motrin TAB* 800 MG] 800 mg PO Q6H PRN #20 tab PRN Reason: Pain Sulfamethox/Trimethoprim DS* [Bactrim DS 800/160 TAB*] 1 tab PO BID #14 tab Patient Education Materials: Laceration (ED), Skin Adhesive Care (ED) Referrals: Vicente Mcnair MD [Primary Care Provider] - 3 Days Additional Instructions: 1-Please take full course of antibiotic to avoid resistance. 2- Keep wound clean and dry. apply Bacitracin ointment over the wound BID x 7 days 3-Take Ibuprofen or Tylenol PO q6-8hrs prn for pain or swelling. 4- If you develop fever or redness around your finger despite the antibiotic please return to the Urgent care or PCP for further management - Billing Disposition and Condition Condition: STABLE Disposition: HOME
[2017-06-02] MEDS ORDERED: Acetaminophen TAB* 325 MG PO ONE ×2 (19:04→19:22)
== END 2017-06-02 19:29 | disposition home or self-care (01) ==
LOC: UCEAST 17:31
DX: S61.412A Laceration without foreign body of left hand, initial encounter (principal); W26.0XXA Contact with knife, initial encounter; Y93.G1 Activity, food preparation and clean up; Y92.9 Unspecified place or not applicable; Z23 Encounter for immunization; J45.909 Unspecified asthma, uncomplicated; Z88.0 Allergy status to penicillin; Z91.048 Other nonmedicinal substance allergy status; F17.210 Nicotine dependence, cigarettes, uncomplicated
CPT/HCPCS: 12001; 90471; 90715; 99212; A9270-GY; G0463

== ENCOUNTER 2017-07-29 20:03 | Emergency (ER) | payer OTHER ==
[2017-07-29] MEDS ORDERED: Lidocaine 2% VISCOUS* 15 ML UDC PO ONE (21:03)
[2017-07-29] MEDS ORDERED: Al Hydrox/Mg Hydrox/Simet LIQ* 30 ML UDC PO ONE ×2 (21:03→22:28)
[2017-07-29] MEDS ORDERED: Famotidine TAB* 20 MG PO ONE (21:03)
[2017-07-29] MEDS ORDERED: Sucralfate TAB* 1 GM PO ONE (21:03)
--- NOTE | 2017-07-29 21:55 | RAD ---
HISTORY: Chest pain COMPARISONS: September 23, 2016 VIEWS: 4: Frontal dual-energy and lateral views of the chest. FINDINGS: CARDIOMEDIASTINAL SILHOUETTE: The cardiomediastinal silhouette is normal. PERICO: The perico are normal. PLEURA: The costophrenic angles are sharp. No pleural abnormalities are noted. LUNG PARENCHYMA: There is hyperinflation with flattening of the diaphragm and expansion of the AP diameter of the chest. ABDOMEN: The upper abdomen is clear. There is no subphrenic gas. BONES AND SOFT TISSUES: No bone or soft tissue abnormalities are noted. OTHER: None. IMPRESSION: HYPERINFLATION WHICH CAN BE SEEN WITH COPD OR REACTIVE AIRWAY DISEASE. NO ACTIVE CARDIOPULMONARY DISEASE
[2017-07-29] MEDS ORDERED: Omeprazole CAP* 20 MG PO ONE (22:28)
[2017-07-29 22:53] VITALS: BP 106/70
--- NOTE | 2017-07-29 23:42 | ED ---
Clark Hancock Gabriel, scribed for Tawanda Krueger MD on 07/29/17 at 2106 . HPI Chest Pain - HPI Summary HPI Summary: This patient is a 47 year old F presenting to [facility] c/o chest pain that radiates into her shoulders/ back that began this morning. The patient rates the pain 9/10 in severity and states it has been constant all day. Symptoms alleviated by nothing, pt has tried tums/ibuprofen with no relief. Patient reports burping often. Patient denies LE pain and edema.She has had similar sx a long time ago dx as GERD. At this time pt was given endoscopy and carafate. She has been taking 600-800mg ibuprofen daily for her Achilles tendon pain. Sees podiatry for this and needs repair. - History of Current Complaint Chief Complaint: EDChestPainROMI Time Seen by Provider: 07/29/17 20:50 Hx Obtained From: Patient Hx Last Menstrual Period: 10/06/16 Onset/Duration: Started Hours Ago, Still Present Timing: Constant Initial Severity: Severe Current Severity: Severe Pain Intensity: 9 Pain Scale Used: 0-10 Numeric Chest Pain Location: Diffuse Chest Pain Radiates: Yes Chest Pain Radiates To:: Back, Shoulder Alleviating Factor(s): Nothing Associated Signs and Symptoms: Positive: Negative - edema, Other: - burping - Allergy/Home Medications Allergies/Adverse Reactions: Allergies Allergy/AdvReac Type Severity Reaction Status Date / Time Adhesive Tape [Plastic Tape] Allergy Rash Verified 07/29/17 20:14 coconut Allergy Swelling Verified 07/29/17 20:14 Of Face,Lips,& Throat Penicillins Allergy Swelling Verified 07/29/17 20:14 Of Face,Lips,& Throat Home Medications: Home Medications Loratadine 10 mg PO DAILY 07/29/17 [History Confirmed 07/29/17] PMH/Surg Hx/FS Hx/Imm Hx Endocrine/Hematology History: Denies: Hx Anticoagulant Therapy, Hx Blood Disorders, Hx Blood Transfusions, Hx Bone Marrow Disease, Hx Diabetes, Hx Systemic Lupus Erythematosus, Hx Thyroid Disease, Hx Anemia, Hx Unexplained Bleeding Cardiovascular History: Denies: Hx Congestive Heart Failure, Hx Deep Vein Thrombosis, Hx Hypertension , Hx Myocardial Infarction, Hx Pacemaker/ICD Respiratory History: Reports: Hx Asthma - She uses an inhaler every day., Hx Chronic Bronchitis Denies: Hx Chronic Obstructive Pulmonary Disease (COPD), Hx Cystic Fibrosis, Hx Lung Cancer, Hx Pleural Effusion, Hx Pneumonia, Hx Pulmonary Edema, Hx Pulmonary Embolism, Hx Seasonal Allergies GI History: Reports: Hx Gastroesophageal Reflux Disease - OCC Denies: Hx Gall Bladder Disease, Hx Gastrointestinal Bleed, Hx Ulcer, Hx Urosepsis History: Denies: Hx Kidney Stones, Hx Renal Disease Musculoskeletal History: Reports: Hx Rheumatoid Arthritis Sensory History: Reports: Hx Contacts or Glasses - GLASSES Opthamlomology History: Reports: Hx Contacts or Glasses - GLASSES Neurological History: Denies: Hx Dementia, Hx Migraine, Hx Seizures, Hx Transient Ischemic Attacks (TIA) Psychiatric History: 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 Denies: Hx Anxiety, Hx Depression, Hx Schizophrenia, Hx Bipolar Disorder - Surgical History Surgery Procedure, Year, and Place: KNUCKLES REMOVED FROM BILAT 5TH TOES - Immunization History Date of Tetanus Vaccine: utd Date of Influenza Vaccine: unk Infectious Disease History: Yes Infectious Disease History: Reports: Hx of Known/Suspected MRSA Denies: Hx Clostridium Difficile, Hx Hepatitis, Hx Human Immunodeficiency Virus (HIV), Hx Shingles, Hx Tuberculosis, Hx Known/Suspected VRE, Hx Known/ Suspected VRSA, History Other Infectious Disease, Traveled Outside the [place] in Last 30 Days - Family History Known Family History: Positive: Hypertension, Diabetes - both parents and all her siblings, Respiratory Disease - Social History Alcohol Use: Occasionally Alcohol Amount: 2X/MONTH Substance Use Type: Reports: None Smoking Status (MU): Light Every Day Tobacco Smoker Type: Cigarettes Amount Used/How Often: 5 cig/day Length of Time of Smoking/Using Tobacco: 18+ years Have You Smoked in the Last Year: Yes Review of Systems Positive: Other - increased belching Positive: Chest Pain Musculoskeletal: Negative - calf pain Negative: Edema All Other Systems Reviewed And Are Negative: Yes Physical Exam - Summary Physical Exam Summary: Appearance: Well appearing, no pain distress Skin: warm, dry, reflects adequate perfusion Head/face: normal Eyes: EOMI, ARLETH ENT: normal Neck: supple, non-tender Respiratory: CTA, breath sounds present Cardiovascular: RRR, pulses symmetrical Abdomen: non-tender, soft Bowel Sounds: present Musculoskeletal: bilateral thickening of Achilles tendons, strength/ROM intact Neuro: normal, sensory motor intact, A&Ox3 Triage Information Reviewed: Yes Vital Signs On Initial Exam: Initial Vitals Temp Pulse Resp BP Pulse Ox 98.3 F 85 15 112/65 98 07/29/17 20:05 07/29/17 20:05 07/29/17 20:05 07/29/17 20:05 07/29/17 20:05 Vital Signs Reviewed: Yes Diagnostics - Vital Signs Vital Signs Temp Pulse Resp BP Pulse Ox 07/29/17 20:05 98.3 F 85 15 112/65 98 - Laboratory Lab Statement: Any lab studies that have been ordered have been reviewed, and results considered in the medical decision making process. - Radiology CXR Radiology Interpretation Completed By: Radiologist - HYPERINFLATION WHICH CAN BE SEEN WITH COPD OR REACTIVE AIRWAY DISEASE. NO ACTIVE CARDIOPULMONARY DISEASE ED physician has reviewed this radiology report. - EKG 1957 Cardiac Rate: NL EKG Rhythm: Sinus Rhythm - at [address] Segment: Normal EKG Interpretation: nml axis, nml intervals, no ST/T changes Chest Pain Course/Dx - Course Course Of Treatment: Patient with his history of significant reflux who has been taking 800 mg ibuprofen 3 times a day for Achilles tendinitis pain. She is developing discomfort in the midline chest and neck. This is significantly improved with GI therapies here. She will double her omeprazole for the next 3 days and is prescribed Pepcid, Carafate and Maalox. She will discontinue the ibuprofen and is given Mobic instead. She'll follow up closely with her primary care physician and GI doctor. EKG is totally normal. Chest x-ray negative aside from some hyperinflation. - Chest Pain Differential Diagnosis/HQI/PQRI: Acute OR, ACS, GI Disease, Lower Respiratory Infection - Diagnoses Provider Diagnoses: Atypical chest pain, GERD (gastroesophageal reflux disease) Discharge - Sign-Out/Discharge Documenting (check all that apply): Discharge/Admit/Transfer - Discharge Plan Condition: Improved Disposition: HOME Prescriptions: Famotidine TAB* [Pepcid 20 MG TAB*] 20 mg PO BID #20 tab Mag Hydrox/Aluminum Hyd/Simeth [Maalox Maximum Strength Susp] 10 ml PO TID PRN # 1 bottle PRN Reason: GERD Meloxicam [Mobic] 7.5 mg PO DAILY #30 tablet Sucralfate TAB* [Carafate*] 1 gm PO ACHS #80 tab Patient Education Materials: Chest Pain (DC), Gastroesophageal Reflux Disease ( ED) Referrals: Vicente Mcnair MD [Primary Care Provider] - Additional Instructions: Stop ibuprofen or Aleve. Avoid alcohol, caffeine. Cut back on smoking. Use the prescribed Mobic instead of ibuprofen. [place] diet, avoid spicy or acidic foods. Return if worse, new symptoms or other concerns. Follow up with your doctor with a call tomorrow. He may needs to see your GI doctor as well. - Billing Disposition and Condition Condition: IMPROVED Disposition: Home The documentation as recorded by the Clark juarez Gabriel accurately reflects the service I personally performed and the decisions made by me, Tawanda Krueger MD.
== END 2017-07-29 22:53 | disposition home or self-care (01) ==
LOC: ED 20:03
DX: R07.89 Other chest pain (principal); K21.9 Gastro-esophageal reflux disease without esophagitis; F17.210 Nicotine dependence, cigarettes, uncomplicated; Z88.0 Allergy status to penicillin
CPT/HCPCS: 71046; 93005; 99283; A9270-GY

== ENCOUNTER 2017-10-26 20:09 | Emergency (ER) | payer OTHER ==
[2017-10-26 20:18] VITALS: BP 106/58
--- NOTE | 2017-10-26 20:40 | UC ---
Lower Extremity/Ankle HPI - HPI Summary HPI Summary: Pt is a 47 y/o F c/o R ankle pain lasting for ~2 years. Pain is rated a 7/10 and described as constant. She reports that the pain radiates up to her calf. Assoc. Sx: R ankle pain. Denies: fever. Pain is worsened by exercise/activity and change in position. Pain is alleviated by inactivity. - History of Current Complaint Chief Complaint: UCLowerExtremity Stated Complaint: R FOOT COMPLAINT Hx Obtained From: Patient Hx Last Menstrual Period: 10/13/17 Onset/Duration: Gradual Onset, Lasting Weeks - 2 years, Worse Since - ~3 days Severity Initially: Mild Severity Currently: Severe Pain Intensity: 7 Pain Scale Used: 0-10 Numeric Aggravating Factor(s): Other - exercise/activity, change in position Alleviating Factor(s): Other - inactivity - Allergies/Home Medications Allergies/Adverse Reactions: Allergies Allergy/AdvReac Type Severity Reaction Status Date / Time Adhesive Tape [Plastic Tape] Allergy Rash Verified 10/26/17 20:19 coconut Allergy Swelling Verified 10/26/17 20:19 Of Face,Lips,& Throat Penicillins Allergy Swelling Verified 10/26/17 20:19 Of Face,Lips,& Throat PMH/Surg Hx/FS Hx/Imm Hx Endocrine History: Other Other Endocrine History: NEG: DM Cardiovascular History: Other Other Cardiovascular History: NEG: CAD, HTN Other History Of: Negative For: HIV, Hepatitis B, Hepatitis C, Anticoagulant Therapy - Surgical History Surgical History: Yes Surgery Procedure, Year, and Place: KNUCKLES REMOVED FROM BILAT 5TH TOES - Family History Known Family History: Positive: Hypertension, Diabetes - both parents and all her siblings, Respiratory Disease - Social History Occupation: Employed Full-time Lives: With Family Alcohol Use: Occasionally Alcohol Amount: 2X/MONTH Substance Use Type: None Smoking Status (MU): Light Every Day Tobacco Smoker Type: Cigarettes Amount Used/How Often: 5 cig/day Length of Time of Smoking/Using Tobacco: 18+ years Have You Smoked in the Last Year: Yes - Immunization History Most Recent Influenza Vaccination: Not UTD Most Recent Tetanus Shot: 05/20/12 Review of Systems Constitutional: Other - NEG: fever Musculoskeletal: Other: - POS: R ankle pain All Other Systems Reviewed And Are Negative: Yes Physical Exam - Summary Physical Exam Summary: Appearance: Well-appearing, Well-nourished Skin: Warm, Dry, No rash Eyes: Normal, PERRL, EOMI, sclera anicteric ENT: Normal Neck: Supple, nontender Respiratory: Clear to auscultation Cardiovascular: S1, S2, no murmur, no rub, no gallop Abdomen: Soft, nontender, no organomegaly Bowel sounds: Present Musculoskeletal: Normal, Strength/ROM Intact, no edema, pulses symmetrical Neurological: Normal, A&Ox3, cranial nerves II-XII WNL, follows commands, gait not tested, sensation intact to pin and light touch Psychiatric: affect normal, behavior appropriate, dressed appropriately, judgment intact R ANKLE: achilles tendon pain, lump on achilles tendon, pain with internal and external rotation of the knee. Pain in postibular tendon. Triage Information Reviewed: Yes Vital Signs: Initial Vital Signs Temp 98.5 F 10/26/17 20:11 Pulse 108 10/26/17 20:11 Resp 14 10/26/17 20:11 BP 106/58 10/26/17 20:11 Pulse Ox 100 10/26/17 20:11 Vital Signs Reviewed: Yes Diagnostics - Radiology Knee XR Xray Interpretation: No Acute Changes - IMPRESSION: NML Radiology Interpretation Completed By: ED Physician - ED physician reviewed this radiology report. Ankle XR Xray Interpretation: No Acute Changes - IMPRESSION: NML Radiology Interpretation Completed By: ED Physician - ED physician reviewed this radiology report. Hip XR Xray Interpretation: No Acute Changes - IMPRESSION: NML Radiology Interpretation Completed By: ED Physician - ED physician reviewed this radiology report. Lower Extremity Course/Dx - Course Course Of Treatment: Provider saw patient in the room and ordered R ankle, hip , knee XR's; Results: ALL NEGATIVE. She will be D/C home - Differential Dx/Diagnosis Provider Diagnoses: posterior tibial tendinitis, Discharge - Sign-Out/Discharge Documenting (check all that apply): Patient Departure All imaging exams completed and their final reports reviewed: Yes - Discharge Plan Condition: Good Disposition: HOME Patient Education Materials: Achilles Tendinitis (ED), Tendinitis (ED) Forms: *Work Release Referrals: Vicente Mcnair MD [Primary Care Provider] - 2 Days Additional Instructions: RETURN TO THE EMERGENCY DEPARTMENT FOR CHANGING OR WORSENING SYMPTOMS, physical therapy evaluation and treatment - Attestation Statements Document Initiated by Scribe: Yes Documenting Scribe: Madhu Grullon Provider For Whom Scribe is Documenting (Include Credential): Michoacano Nelson MD. Scribe Attestation: IMadhu, scribed for Michoacano Nelson MD. on 10/26/17 at 2206.
--- NOTE | 2017-10-27 07:31 | RAD ---
INDICATION: Right ankle pain. TECHNIQUE: 3 views of the right ankle were obtained. FINDINGS: There is anterolateral soft tissue swelling. The bones are normal alignment. No fracture is seen. Joint spaces appear maintained. IMPRESSION: SOFT TISSUE SWELLING, NO FRACTURE IS SEEN. R1
--- NOTE | 2017-10-27 07:34 | RAD ---
INDICATION: Right hip pain. COMPARISON: There are no relevant prior studies available for comparison. TECHNIQUE: An AP view of the pelvis and frontal and lateral views of the right hip were obtained. FINDINGS: The bones are in normal alignment. No fracture is seen. Joint spaces appear maintained. IMPRESSION: NEGATIVE EXAM. R1
--- NOTE | 2017-10-27 07:51 | RAD ---
INDICATION: Right knee pain. TECHNIQUE: 3 views of the right knee were obtained. The exam is limited no lateral view of the knee was obtained. FINDINGS: The bones are in normal alignment. No joint effusion or fracture is seen. Joint spaces appear maintained. IMPRESSION: LIMITED STUDY, NO EVIDENCE FOR FRACTURE. R1
== END 2017-10-26 22:00 | disposition home or self-care (01) ==
LOC: UCEAST 20:09
DX: M76.821 Posterior tibial tendinitis, right leg (principal); F17.210 Nicotine dependence, cigarettes, uncomplicated; Z88.0 Allergy status to penicillin; Z91.018 Allergy to other foods; Z91.048 Other nonmedicinal substance allergy status
CPT/HCPCS: 99212; G0463

== ENCOUNTER 2018-05-04 13:41 | Emergency (ER) | payer BC, MEDICAID ==
[2018-05-04 13:48] VITALS: BP 110/67
--- NOTE | 2018-05-04 14:16 | UC ---
UC General HPI - HPI Summary HPI Summary: Patient has history of swollen salivary glands which normally respond to sour intake. this time, it is not responding, there area is swollen and painful hs been 3 days - History of Current Complaint Chief Complaint: UCRespiratory Stated Complaint: THROAT COMPLAINT Hx Obtained From: Patient Hx Last Menstrual Period: 10/13/17 Onset/Duration: Sudden Onset, Lasting Days Timing: Constant Onset Severity: Severe Current Severity: Severe Pain Intensity: 10 - Allergy/Home Medications Allergies/Adverse Reactions: Allergies Allergy/AdvReac Type Severity Reaction Status Date / Time Adhesive Tape [Plastic Tape] Allergy Rash Verified 05/04/18 13:48 coconut Allergy Swelling Verified 05/04/18 13:48 Of Face,Lips,& Throat Penicillins Allergy Swelling Verified 05/04/18 13:48 Of Face,Lips,& Throat Home Medications: Home Medications Ibuprofen 800 mg PO 05/04/18 [History] PMH/Surg Hx/FS Hx/Imm Hx Previously Healthy: Yes Other History Of: Negative For: HIV, Hepatitis B, Hepatitis C, Anticoagulant Therapy - Surgical History Surgical History: Yes Surgery Procedure, Year, and Place: KNUCKLES REMOVED FROM BILAT 5TH TOES - Family History Known Family History: Positive: Hypertension, Diabetes - both parents and all her siblings, Respiratory Disease - Social History Alcohol Use: Occasionally Alcohol Amount: 2X/MONTH Substance Use Type: None Smoking Status (MU): Light Every Day Tobacco Smoker Type: Cigarettes Amount Used/How Often: 5 cig/day Length of Time of Smoking/Using Tobacco: 18+ years Have You Smoked in the Last Year: Yes - Immunization History Most Recent Influenza Vaccination: Not UTD Most Recent Tetanus Shot: 05/20/12 Review of Systems All Other Systems Reviewed And Are Negative: Yes Constitutional: Positive: Negative Skin: Positive: Negative Eyes: Positive: Negative ENT: Positive: Other - swelling of the right mandible Respiratory: Positive: Negative Cardiovascular: Positive: Negative Gastrointestinal: Positive: Negative Genitourinary: Positive: Negative Motor: Positive: Negative Neurovascular: Positive: Negative Musculoskeletal: Positive: Negative Neurological: Positive: Negative Psychological: Positive: Negative Is Patient Immunocompromised?: No Physical Exam Triage Information Reviewed: Yes Appearance: Well-Appearing, Well-Nourished, Pain Distress Vital Signs: Initial Vital Signs Temp 97.9 F 05/04/18 13:45 Pulse 101 05/04/18 13:45 Resp 18 05/04/18 13:45 BP 110/67 05/04/18 13:45 Pulse Ox 99 05/04/18 13:45 Vital Signs Reviewed: Yes Eye Exam: Normal ENT: Positive: Pharynx normal, TMs normal, Other - swelling of the right salivary gland noted Dental Exam: Normal Neck exam: Normal Respiratory Exam: Normal Respiratory: Positive: Chest non-tender, Lungs clear, Normal breath sounds Cardiovascular Exam: Normal Cardiovascular: Positive: RRR, No Murmur, Pulses Normal Abdominal Exam: Normal Abdomen Description: Positive: Nontender, No Organomegaly, Soft Bowel Sounds: Positive: Present Musculoskeletal Exam: Normal Neurological Exam: Normal Psychological Exam: Normal Skin Exam: Normal Course/Dx - Course Course Of Treatment: hx obtained, exam performed ,meds reviewed, treated for blocked salivary gland infection. recommend follow up with ENT if not improving in the next 2-3 days - Diagnoses Provider Diagnosis: Salivary gland infection Discharge - Sign-Out/Discharge Documenting (check all that apply): Patient Departure All imaging exams completed and their final reports reviewed: No Studies - Discharge Plan Condition: Stable Disposition: HOME Prescriptions: Clindamycin Cap(NF) [Clindamycin Cap 300 mg Cap(NF)] 300 mg PO Q6H #28 cap Ibuprofen TAB* [Motrin TAB* 800 MG] 800 mg PO Q8H PRN #28 tab PRN Reason: Pain Patient Education Materials: Sialoadenitis (ED) Referrals: Vicente Mcnair MD [Primary Care Provider] - Additional Instructions: 1. take the medication as prescribed. 2. If not improving in 2-3 days please follow up with your ENT. - Billing Disposition and Condition Condition: STABLE Disposition: Home - Attestation Statements Provider Attestation: I was available for consult. This patient was seen by the AMBER. The patient was not presented to, seen by, or examined by me. -Saravanan
== END 2018-05-04 14:27 | disposition home or self-care (01) ==
LOC: UCEAST 13:41
DX: K11.20 Sialoadenitis, unspecified (principal); F17.210 Nicotine dependence, cigarettes, uncomplicated; Z91.09 Other allergy status, other than to drugs and biological substances; Z91.018 Allergy to other foods; Z88.0 Allergy status to penicillin
CPT/HCPCS: 99212; G0463

== ENCOUNTER 2018-08-09 14:41 | Emergency (ER) | payer BC, MEDICAID ==
[2018-08-09 14:55] VITALS: BP 116/57
--- NOTE | 2018-08-09 15:03 | UC ---
Hand/Wrist HPI - HPI Summary HPI Summary: 48 yo female presents with RIGHT thumb injury. She tells me that on 08/04 she was using a shopping cart and her thumb became lodged within a [place] of the cart. She had to pull it hard to get it out and bent it aggressively in the process. Since that time has had pain at the IP joint of the thumb. She is right handed. Has been trying to rest, apply ice, and take ibuprofen, but the pain has not improved. She also has decreased flexion at the site. - History Of Current Complaint Chief Complaint: UCUpperExtremity Stated Complaint: THUMB INJURY Time Seen by Provider: 08/09/18 15:02 Hx Obtained From: Patient Hx Last Menstrual Period: 07/24/18 Onset/Duration: Sudden Onset Severity Initially: Severe Severity Currently: Severe Pain Intensity: 9 Pain Scale Used: 0-10 Numeric - Allergies/Home Medications Allergies/Adverse Reactions: Allergies Allergy/AdvReac Type Severity Reaction Status Date / Time Adhesive Tape [Plastic Tape] Allergy Rash Verified 08/09/18 14:55 coconut Allergy Swelling Verified 08/09/18 14:55 Of Face,Lips,& Throat Penicillins Allergy Swelling Verified 08/09/18 14:55 Of Face,Lips,& Throat Home Medications: Home Medications Cetirizine* [ZyrTEC 10 MG TAB*] 10 mg PO DAILY 08/09/18 [History Confirmed 08/09] Montelukast Sodium TAB* [Singulair 5 mg TAB*] 5 mg PO DAILY 08/09/18 [History Confirmed 08/09/18] PMH/Surg Hx/FS Hx/Imm Hx - Additional Past Medical History Additional PMH: Seasonal allergies Respiratory History: Asthma Other History Of: Negative For: HIV, Hepatitis B, Hepatitis C, Anticoagulant Therapy - Surgical History Surgical History: Yes Surgery Procedure, Year, and Place: KNUCKLES REMOVED FROM BILAT 5TH TOES - Family History Known Family History: Positive: Hypertension, Diabetes - both parents and all her siblings, Respiratory Disease - Social History Lives: With Family Alcohol Use: Occasionally Alcohol Amount: 2X/MONTH Substance Use Type: None Smoking Status (MU): Light Every Day Tobacco Smoker Type: Cigarettes Amount Used/How Often: 5 cig/day Length of Time of Smoking/Using Tobacco: 18+ years Have You Smoked in the Last Year: Yes - Immunization History Most Recent Influenza Vaccination: Not UTD Most Recent Tetanus Shot: 05/20/12 Review of Systems All Other Systems Reviewed And Are Negative: Yes Constitutional: Positive: Negative Skin: Positive: Negative Respiratory: Positive: Negative Cardiovascular: Positive: Negative Neurovascular: Positive: Negative Musculoskeletal: Positive: Other: - Right thumb pain Neurological: Positive: Negative Psychological: Positive: Negative Physical Exam - Summary Physical Exam Summary: GENERAL: NAD. WDWN. No pain distress. SKIN: No rashes, sores, lesions, or open wounds. CHEST: No accessory muscle use. Breathing comfortably and in no distress. CV: Pulses intact radial and ulnar. Cap refill <2seconds MSK: RIGHT THUMB: TTP at volar aspect of IP joint. Keeps in extension. Able to flex slightly, but is weak doing so. NTTP superior or inferior to IP. NTTP MCP. NEURO: Alert. Sensations intact hand and all fingers. PSYCH: Age appropriate behavior. Triage Information Reviewed: Yes Vital Signs: Initial Vital Signs Temp 98 F 08/09/18 14:47 Pulse 102 08/09/18 14:47 Resp 12 08/09/18 14:47 BP 116/57 08/09/18 14:47 Pulse Ox 99 08/09/18 14:47 Vital Signs Reviewed: Yes Hand/Wrist Course/Dx - Course Course Of Treatment: XR: IMPRESSION: BONE FRAGMENT ALONG THE DISTAL PHALANX OF THE FIRST DIGIT SUGGESTIVE OF AN AVULSION INJURY OF UNCERTAIN ACUITY. RECOMMEND CORRELATION WITH SITE OF PAIN. Given GERARDO and exam today, I believe the avulsion injury is acute in nature and perhaps represents a flexor tender injury. She was placed in a thumb spica brace and advised to continue RICE therapy and ibuprofen. Follow up with Orthopedics next week for further evaluation. - Differential Dx/Diagnosis Provider Diagnosis: Avulsion fracture of right thumb Discharge - Sign-Out/Discharge Documenting (check all that apply): Patient Departure All imaging exams completed and their final reports reviewed: Yes - Discharge Plan Condition: Stable Disposition: HOME Patient Education Materials: Thumb Fracture (ED) Referrals: Vicente Mcnair MD [Primary Care Provider] - Madhu Toussaint MD [Medical Doctor] - As Soon As Possible Additional Instructions: If you develop a fever, shortness of breath, chest pain, new or worsening symptoms - please call your PCP or go to the ED immediately. 1) Rest, Ice, and elevate your thumb/hand intermittently throughout the day to reduce pain and swelling 2) Use the thumb spica splint as much as possible until your are able to see Orthopedics 3) Please call Orthopedics at the number below to schedule a follow up appointment for next week - Billing Disposition and Condition Condition: STABLE Disposition: Home
== END 2018-08-09 15:57 | disposition home or self-care (01) ==
LOC: UCEAST 14:41
DX: S62.521A Displaced fracture of distal phalanx of right thumb, initial encounter for closed fracture (principal); W23.0XXA Caught, crushed, jammed, or pinched between moving objects, initial encounter; Y93.89 Activity, other specified; Y92.512 Supermarket, store or market as the place of occurrence of the external cause; F17.210 Nicotine dependence, cigarettes, uncomplicated
CPT/HCPCS: 99213; G0463

== ENCOUNTER 2019-03-22 16:20 | Emergency (ER) | payer BC, MEDICAID ==
[2019-03-22 16:43] VITALS: BP 107/64
--- NOTE | 2019-03-22 17:10 | UC ---
FLU HPI - HPI Summary HPI Summary: 49 y/o female presents to the urgent care c/o dry cough, chest congestion, body aches, low grade fever since yesterday. Pt reports PMHX of asthma and last night she developed mild wheezing. her albuterol inhaler has . Her 2 children have been Dx recently w/ Influenza B. She states nasal congestion w/ clear nasal discharge. Mild LOCO. Pt denies SOB, dizziness, chest pain, abdominal pain, N/V/D. She has taken Tylenol PO to alleviate symptoms. - History of Current Complaint Chief Complaint: UCGeneralIllness Stated Complaint: FLU LIKE SYMPTOMS Time Seen by Provider: 03/22/19 17:09 Hx Obtained From: Patient Hx Last Menstrual Period: 3 weeks ago Onset/Duration: Gradual Onset Severity Currently: Mild Severity Initially: Moderate Pain Intensity: 3 - LOCO and body aches Pain Scale Used: 0-10 Numeric Associated Signs & Symptoms: Positive: Fever, Myalgia, Cough, Nasal Congestion - clear, Headache. Negative: Sore Throat, Vomiting, Diarrhea Related Hx: Possible Flu/Infectious Exposure, Smoking - Risk Factors Influenza Risk Factors: Negative - Allergy/Home Medications Allergies/Adverse Reactions: Allergies Allergy/AdvReac Type Severity Reaction Status Date / Time coconut Allergy Swelling Verified 03/22/19 16:44 Of Face,Lips,& Throat Penicillins Allergy Swelling Verified 03/22/19 16:44 Of Face,Lips,& Throat adhesive tape AdvReac See Comment Verified 03/22/19 16:44 PMH/Surg Hx/FS Hx/Imm Hx Previously Healthy: Yes Endocrine History: Dyslipidemia Respiratory History: Asthma GI/ History: Gastroesophageal Reflux Other History Of: Negative For: HIV, Hepatitis B, Hepatitis C, Anticoagulant Therapy - Surgical History Surgical History: Yes Surgery Procedure, Year, and Place: KNUCKLES REMOVED FROM BILAT 5TH TOES - Family History Known Family History: Positive: Hypertension, Diabetes - both parents and all her siblings, Respiratory Disease - Social History Occupation: Employed Full-time Lives: With Family Alcohol Use: Occasionally Alcohol Amount: 2X/MONTH Substance Use Type: None Smoking Status (MU): Light Every Day Tobacco Smoker Type: Cigarettes Amount Used/How Often: 5 cig/day Length of Time of Smoking/Using Tobacco: 18+ years Have You Smoked in the Last Year: Yes - Immunization History Most Recent Influenza Vaccination: Not UTD Most Recent Tetanus Shot: 05/20/12 Review of Systems All Other Systems Reviewed And Are Negative: Yes Constitutional: Positive: Fever - body aches, Chills, Fatigue Skin: Positive: Negative Eyes: Positive: Negative ENT: Positive: Nasal Discharge - clear, Sinus Congestion, Sinus Pain/Tenderness , Other - PND Respiratory: Positive: Cough - dry, Other - mild wheezing Cardiovascular: Positive: Negative Gastrointestinal: Positive: Negative Genitourinary: Positive: Negative Motor: Positive: Negative Neurovascular: Positive: Negative Musculoskeletal: Positive: Myalgia Neurological: Positive: Headache Psychological: Positive: Negative Is Patient Immunocompromised?: No Physical Exam - Summary Physical Exam Summary: VITAL SIGNS: Reviewed. GENERAL: Patient is a well developed and nourished female who is sitting comfortably in the examining table. Patient is not in any acute respiratory distress. HEAD AND FACE: No signs of trauma. No ecchymosis, hematomas or skull depressions. No sinus tenderness. EYES: PERRLA, EOMI x 2, No injected conjunctiva, no nystagmus. No photophobia. EARS: Hearing grossly intact. Ear canals and tympanic membranes are within normal limits. MOUTH: Positive pharynx with mild erythema, no exudates, No B/L tonsillar enlargement , no exudate. Uvula in midline. edematous nasal mucosa w/ clear nasal discharge, clear PND NECK: Supple, trachea is midline, Positive anterior cervical lymphadenopathy, no JVD, no carotid bruit, no c-spine tenderness, neck with full ROM. No meningeal signs, no Kernig's or brudzinskis signs. Respiratory: no orthopnea or dyspnea. Able to speak in full sentences, no retractions or accessory muscle use, no tripod position, stridor, or head bobbing. Positive breath sounds bilaterally. diffuse scattered wheezing b/L lungs, no rhonchi , no crackles or rales. LUNGS: Clear to auscultation bilaterally. No wheezing or crackles. CVS: Regular rate and rhythm, S1 and S2 present, no murmurs or gallops appreciated. ABDOMEN: Soft, non-tender. No signs of distention. No rebound no guarding, and no masses palpated. Bowel sounds are normal. EXTREMITIES: FROM in all major joints, no edema, no cyanosis or clubbing. NEURO: Alert and oriented x 3. No acute neurological deficits. Pt follows commands. SKIN: Dry and warm Triage Information Reviewed: Yes Vital Signs: Initial Vital Signs Temp 97.3 F 03/22/19 16:40 Pulse 100 03/22/19 16:40 Resp 16 03/22/19 16:40 BP 107/64 03/22/19 16:40 Pulse Ox 100 03/22/19 16:40 Flu Course/Dx - Course Course Of Treatment: 49 y/o female presents to the urgent care c/o dry cough, chest congestion, body aches, low grade fever since yesterday. Pt reports PMHX of asthma and last night she developed mild wheezing. her albuterol inhaler has . Her 2 children have been Dx recently w/ Influenza B. She states nasal congestion w/ clear nasal discharge. Mild LOCO. Pt denies SOB, dizziness, chest pain, abdominal pain, N/V/D. She has taken Tylenol PO to alleviate symptoms. Hx obtained. PT is hemodynamically stable, mild B/L posterior lungs w/ mild wheezing, no rhonchi, no crackles or rales on examination. O2Sat: 100%.. Rapid influenza A&B: negative. Duoneb treatment ordered and given by nurse. Pt tolerated well medications and her lungs improved. Pt states feeling better. Pt will be Tx for Asthma exacerbation and influenza exposure. Pt Rx Tamiflu PO , Prednisone PO as directed below. Pt given at the clinic Albuterol Inhaler w/ aerochamber. Pt advised to rest, increase fluid intake, eat well and avoid strenuous exercise. If symptoms do not improve or worsen advised to return to the urgent care or f/u with her PCP for further evaluation and treatment. Pt understood and agreed w/ plan of care. - Differential Dx/Diagnosis Differential Diagnosis/HQI/PQRI: Bronchitis, Influenza, Pneumonia, Upper Respiratory Infection, Other - asthma exacerbation, pneumonia Provider Diagnosis: Asthma exacerbation, Exposure to influenza Discharge ED - Sign-Out/Discharge Documenting (check all that apply): Patient Departure - d/C home All imaging exams completed and their final reports reviewed: No Studies - Discharge Plan Condition: Stable Disposition: HOME Prescriptions: Oseltamivir CAP* [Tamiflu CAP*] 75 mg PO DAILY #10 cap predniSONE 20 mg TAB [Deltasone 20 MG TAB*] 20 mg PO DAILY #11 tab Patient Education Materials: Asthma (ED), Influenza (ED) Referrals: Vicente Mcnair MD [Primary Care Provider] - 3 Days Additional Instructions: 1- Take Prednisone PO taper dose as directed . 2-Use the albuterol nebulizer treatment you have at home to alleviate SOB, and wheezing as directed . Increase fluid intake, rest and eat well. 3- Rapid influenza A&B: negative. However, your kid have the flu. Take Tamiflu PO as directed for prophylactic treatment 4- If symptoms do not improve or worsen or your develop SOB with fever and severe wheezing please go immediately to the ER further evaluation and treatment. 4- F/u with your PCP in 2-3 days if not improvement of symptoms for further management on your Asthma - Billing Disposition and Condition Condition: STABLE Disposition: Home
[2019-03-22] MEDS ORDERED: Albuterol/Ipratropium NEB.SOL* Albuterol 2.5 MG/Ipratropium 0.5 MG 3 ML INH ONE (17:24)
[2019-03-22 17:30] LABS: Influenza A Molecular Negative (Negative); Influenza B Molecular Negative (Negative)
[2019-03-22] MEDS ORDERED: Albuterol HFA INHALER* 8 gm MDI INH ONE (17:37)
== END 2019-03-22 17:54 | disposition home or self-care (01) ==
LOC: UCEAST 16:20
DX: J45.901 Unspecified asthma with (acute) exacerbation (principal); F17.210 Nicotine dependence, cigarettes, uncomplicated; Z20.828 Contact with and (suspected) exposure to other viral communicable diseases; Z88.0 Allergy status to penicillin; Z91.09 Other allergy status, other than to drugs and biological substances
CPT/HCPCS: 99213; A9270-GY; G0463

== ENCOUNTER 2019-03-24 14:15 | Emergency (ER) | payer BC, MEDICAID ==
--- NOTE | 2019-03-24 16:39 | ED ---
Complex/Multi-Sys Presentation - HPI Summary HPI Summary: Patient is a 49 y/o F presenting to the ED for a chief complaint of chest pressure, lightheadedness, and paresthesia. Patient describes a flush" and pressure in her head and behind the eyes while at work on 03/24/19. While standing on a pedestal at work, patient felt her vision go "white." After this began, she later felt paresthesia diffuse throughout the body, including the face. She also reports cough and malaise. Patient denies any fever, chills, erythema of eyes, sore throat, shortness of breath, rhinorrhea, abdominal pain, nausea, vomiting, dysuria, hematuria, myalgia, edema, rash, changes in speech, or dizziness. Patient believes her symptoms at work could be related to her blood pressure. She has positive sick contact with her children who have influenza. Patient tested negative for influenza at [facility], but was placed on Tamiflu and prednisone. At that time, she was given a breathing treatment. Patient took Tylenol for head pressure without relief. PMHx is significant for asthma. Patient denies receiving an influenza vaccination this season. - History Of Current Complaint Chief Complaint: EDGeneral Time Seen by Provider: 03/24/19 15:52 Hx Obtained From: Patient Onset/Duration: Sudden Onset, Still Present Timing: Constant Severity Currently: Moderate Severity Initially: Moderate Associated Signs And Symptoms: Positive: Cough, Chest Pain - Pressure. Negative : Dizziness, SOB, Edema, Nausea, Vomiting, Abdominal Pain, Dysuria, Fever - Allergies/Home Medications Allergies/Adverse Reactions: Allergies Allergy/AdvReac Type Severity Reaction Status Date / Time coconut Allergy Swelling Verified 03/24/19 14:19 Of Face,Lips,& Throat Penicillins Allergy Swelling Verified 03/24/19 14:19 Of Face,Lips,& Throat adhesive tape AdvReac See Comment Verified 03/24/19 14:19 Home Medications: Home Medications LoraTADine TAB(NF) [Claritin 10 MG TAB(NF)] 10 mg PO DAILY PRN 03/24/19 [ History Confirmed 03/24/19] PMH/Surg Hx/FS Hx/Imm Hx Previously Healthy: Yes Endocrine/Hematology History: Denies: Hx Anticoagulant Therapy, Hx Blood Disorders, Hx Blood Transfusions, Hx Bone Marrow Disease, Hx Diabetes, Hx Systemic Lupus Erythematosus, Hx Thyroid Disease, Hx Anemia, Hx Unexplained Bleeding Cardiovascular History: Denies: Hx Congestive Heart Failure, Hx Deep Vein Thrombosis, Hx Hypertension , Hx Myocardial Infarction, Hx Pacemaker/ICD Respiratory History: Reports: Hx Asthma - uses an inhaler every day., Hx Chronic Bronchitis Denies: Hx Chronic Obstructive Pulmonary Disease (COPD), Hx Cystic Fibrosis, Hx Lung Cancer, Hx Pleural Effusion, Hx Pneumonia, Hx Pulmonary Edema, Hx Pulmonary Embolism, Hx Seasonal Allergies GI History: Reports: Hx Gastroesophageal Reflux Disease - OCC Denies: Hx Gall Bladder Disease, Hx Gastrointestinal Bleed, Hx Ulcer, Hx Urosepsis History: Denies: Hx Kidney Stones, Hx Renal Disease Musculoskeletal History: Reports: Hx Rheumatoid Arthritis Sensory History: Reports: Hx Contacts or Glasses - GLASSES Denies: Hx Legally Blind, Hx Deafness, Hx Hearing Aid Opthamlomology History: Reports: Hx Contacts or Glasses - GLASSES Denies: Hx Legally Blind EENT History: Denies: Hx Deafness Neurological History: Denies: Hx Dementia, Hx Migraine, Hx Seizures, Hx Transient Ischemic Attacks (TIA) Psychiatric History: 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 Denies: Hx Anxiety, Hx Depression, Hx Panic Disorder, Hx Schizophrenia, Hx Bipolar Disorder - Surgical History Surgical History: Yes Surgery Procedure, Year, and Place: KNUCKLES REMOVED FROM BILAT 5TH TOES - Immunization History Date of Tetanus Vaccine: utd Date of Influenza Vaccine: unk Infectious Disease History: Yes Infectious Disease History: Reports: Hx of Known/Suspected MRSA Denies: Hx Clostridium Difficile, Hx Hepatitis, Hx Human Immunodeficiency Virus (HIV), Hx Shingles, Hx Tuberculosis, Hx Known/Suspected VRE, Hx Known/ Suspected VRSA, History Other Infectious Disease, Traveled Outside the [place] in Last 30 Days - Family History Known Family History: Positive: Hypertension, Diabetes - both parents and all her siblings, Respiratory Disease - Social History Occupation: Employed Full-time Lives: With Family Alcohol Use: Occasionally Alcohol Amount: 2X/MONTH Hx Substance Use: Yes Substance Use Type: Reports: Other Hx Tobacco Use: Yes Smoking Status (MU): Light Every Day Tobacco Smoker Type: Cigarettes Amount Used/How Often: 5 cig/day Length of Time of Smoking/Using Tobacco: 18+ years Have You Smoked in the Last Year: Yes Review of Systems Positive: Other - Positive malaise. Negative: Fever, Chills Positive: Other - Positive pressure behind the eyes and "white" in field of vision. Negative: Erythema Negative: Sore Throat Positive: Chest Pain - Pressure Positive: Cough. Negative: Shortness Of Breath Negative: Abdominal Pain, Vomiting, Nausea Negative: dysuria, hematuria Negative: Myalgia, Edema Negative: Rash Neurological: Other - Positive head pressure and lightheadedness; negative dizziness Positive: Paresthesia - Diffuse throughout the body, including the face All Other Systems Reviewed And Are Negative: Yes Physical Exam - Summary Physical Exam Summary: Constitutional: Well-developed, Well-nourished, Alert. (-) Distressed Skin: Warm, Dry HENT: Normocephalic; Atraumatic Eyes: Conjunctiva normal Neck: Musculoskeletal ROM normal neck. (-) JVD, (-) Stridor, (-) Tracheal deviation Cardio: Rhythm regular, rate normal, Heart sounds normal; Intact distal pulses; The pedal pulses are 2+ and symmetric. Radial pulses are 2+ and symmetric. (-) Murmur Pulmonary/Chest wall: Effort normal. (-) Respiratory distress, (+) Wheezes, (-) Rales Abd: Soft, (-) tenderness, (-) Distension, (-) Guarding, (-) Rebound Musculoskeletal: (-) Edema Lymph: (-) Cervical adenopathy Neuro: Alert, Oriented x3 Psych: Mood and affect Normal Triage Information Reviewed: Yes Vital Signs On Initial Exam: Initial Vitals Temp Pulse Resp BP Pulse Ox 97.3 F 99 16 116/76 99 03/24/19 14:17 03/24/19 14:17 03/24/19 14:17 03/24/19 14:17 03/24/19 14:17 Vital Signs Reviewed: Yes Procedures - Sedation Patient Received Moderate/Deep Sedation with Procedure: No Diagnostics - Vital Signs Vital Signs Temp Pulse Resp BP Pulse Ox 03/24/19 16:04 94 102/75 03/24/19 16:03 86 105/57 03/24/19 14:17 97.3 F 99 16 116/76 99 - Laboratory Result Diagrams: 03/24/19 16:52 03/24/19 16:52 Lab Statement: Any lab studies that have been ordered have been reviewed, and results considered in the medical decision making process. - Radiology Chest X-ray Radiology Interpretation Completed By: Radiologist Summary of Radiographic Findings: Chest X-ray IMPRESSION: NO EVIDENCE FOR ACTIVE CARDIOPULMONARY DISEASE. Reviewed by Dr. Taveras. - EKG 17:43 Cardiac Rate: NL - 88 BPM EKG Rhythm: Sinus Rhythm ST Segment: Normal Ectopy: None Summary of EKG Findings: EKG at 17:43 shows normal sinus rhythm with 88 BPM, no STEMI. Reviewed and interpreted by Dr. Taveras. Re-Evaluation - Re-Evaluation First Eval Re-Evaluation Time: 18:00 - I reevaluated the patient while she was driving home , she feels better, I did discuss her lab results with her, also reasons to return to the emergency department. Complex Multi-Symp Course/Dx Course Of Treatment: Patient is a 49 y/o F presenting to the ED for a chief complaint of chest pressure, lightheadedness, and paresthesia. Patient describes a flush" and pressure in her head and behind the eyes while at work on 03/24/19. While standing on a pedestal at work, patient felt her vision go "white." After this began, she later felt paresthesia diffuse throughout the body, including the face. She also reports cough and malaise. Patient denies any fever, chills, erythema of eyes, sore throat, shortness of breath, rhinorrhea, abdominal pain, nausea, vomiting, dysuria, hematuria, myalgia, edema , rash, changes in speech, or dizziness. Patient believes her symptoms at work could be related to her blood pressure. She has positive sick contact with her children who have influenza. Patient tested negative for influenza at [facility], but was placed on Tamiflu and prednisone. At that time, she was given a breathing treatment. Patient took Tylenol for head pressure without relief. PMHx is significant for asthma. Patient denies receiving an influenza vaccination this season. On exam, wheezing. In the ED course, patient was given albuterol 1 neb INH, vibramycin 100 mg PO, and prednisone 50 mg PO. Laboratory abnormal findings: WBC 2.9, RBC 3.67, Hbg 10.3, Hct 31, RDW 16, Plt count 145, absolute neuts 1.2, potassium 3.2, BUN/Creatinine ratio 25.8, lactic acid 0.4. Chest X-ray IMPRESSION: NO EVIDENCE FOR ACTIVE CARDIOPULMONARY DISEASE. EKG at 17:43 shows normal sinus rhythm with 88 BPM, no STEMI. She has had high intensity exposure to the flu. There is subclinical presentation with no worrisome cardiac mimics. Wheezing on exam. Patient is feeling better today than she did yesterday. Patient will be discharged with a diagnosis of viral illness, near syncope, and acute bronchitis. Follow up with PCP in 2-3 days. - Diagnoses Provider Diagnoses: Acute bronchitis, Viral illness, Near syncope Discharge ED - Sign-Out/Discharge Documenting (check all that apply): Patient Departure - Discharge - Discharge Plan Condition: Stable Disposition: HOME Prescriptions: RX: Albuterol HFA INHALER* [Ventolin HFA Inhaler*] 1 puff INH Q4H PRN #1 mdi PRN Reason: Wheezing RX: DOXYcycline CAP(*) [DOXYcycline 100MG CAP(*)] 100 mg PO BID #10 cap RX: predniSONE 50 mg TAB [Deltasone 50 mg TAB] 50 mg PO DAILY #4 tab Patient Education Materials: Acute Bronchitis (ED) Referrals: Vicente Mcnair MD [Primary Care Provider] - Additional Instructions: RETURN TO THE EMERGENCY DEPARTMENT FOR CHANGING OR WORSENING SYMPTOMS. Follow up with your primary care provider in 2-3 days. - Billing Disposition and Condition Condition: STABLE Disposition: Home - Attestation Statements Document Initiated by Scribe: Yes Documenting Scribe: Chichi Garcia Provider For Whom Scribe is Documenting (Include Credential): Shyam Taveras MD Scribe Attestation: Chichi Hancock, scribed for Shyam Taveras MD on 03/24/19 at 1812. Status of Scribe Document: Viewed
[2019-03-24] MEDS ORDERED: Albuterol/Ipratropium NEB.SOL* Albuterol 2.5 MG/Ipratropium 0.5 MG 3 ML INH ONE (16:44)
[2019-03-24 17:00] LABS: ABS Lymphocytes 1.3 10^3/ul (1.0-4.8); ABS Monocytes 0.4 10^3/ul (0-0.8); ABS Neutrophils 1.2 10^3/ul (1.5-7.7); Eosinophil % 0.1 %; Hematocrit 31 % (35-47); Hemoglobin 10.3 g/dL (12.0-16.0); Lymphocyte % 44.5 %; Mean Corpuscular HGB Conc 34 g/dL (31-36); Mean Corpuscular Hemoglobin 28 pg (27-31); Mean Corpuscular Volume 83 fL (80-97); Mean Platelet Volume 9.8 fL (7.4-10.4); Nucleated Red Blood Cells % 0.2; Platelet Count 145 10^3/uL (150-450); Red Blood Count 3.67 10^6 /uL (3.70-4.87); Red Cell Distribution Width 16 % (10-15); White Blood Count 2.9 10^3/uL (3.5-10.8)
[2019-03-24 17:17] LABS: Albumin/Globulin Ratio 1.4 (1-3); BUN/Creatinine Ratio 25.8 (8-20); EGFR African American 124.8 (>60); EGFR Non-African American 103.2 (>60); Globulin 2.8 g/dL (2-4); Potassium 3.2 mmol/L (3.5-5.0); Total Bilirubin 0.2 mg/dL (0.2-1.0); Total Protein 6.8 g/dL (6.4-8.9)
[2019-03-24] MEDS ORDERED: DOXYcycline CAP(*) 100 MG PO ONE (17:42)
[2019-03-24 18:04] VITALS: BP 113/66
== END 2019-03-24 18:03 | disposition home or self-care (01) ==
LOC: ED 14:15
DX: J20.9 Acute bronchitis, unspecified (principal); B34.9 Viral infection, unspecified; R55 Syncope and collapse; R20.2 Paresthesia of skin; J45.909 Unspecified asthma, uncomplicated; K21.9 Gastro-esophageal reflux disease without esophagitis; Z88.0 Allergy status to penicillin; Z91.018 Allergy to other foods; Z91.048 Other nonmedicinal substance allergy status; F17.210 Nicotine dependence, cigarettes, uncomplicated
CPT/HCPCS: 36415; 71046; 80053; 83605; 84484; 85025; 93005; 99284; A9270-GY; J7512